=== PATIENT | male | born 1995 | race Caucasian/White ===

== ENCOUNTER 2024-04-28 20:20 | Emergency (ER) | payer SELFPAY | END 2024-04-28 23:20 | disposition home or self-care (01) | LOC: MW.ED 20:20 | DX: S06.0X0A Concussion without loss of consciousness, initial encounter (principal); T70.0XXA Otitic barotrauma, initial encounter; I10 Essential (primary) hypertension; Z75.8 Other problems related to medical facilities and other health care; W40.1XXA Explosion of explosive gases, initial encounter | CPT/HCPCS: 99283 ==